=== PATIENT | male | born 1990 | race Hispanic/Latino ===

== ENCOUNTER → 2021-01-16 | Outpatient (CLI) | payer MEDICARE ==
[~2021-01-16] MED LIST: DIATRIZOATE MEGL/DIATRIZOA SOD 30 ML BTL PO ONE; IOPAMIDOL 370 MG/ML 200 ML INFUS..BTL INJ ONE; SODIUM CHLORIDE 0.9% 50ML 50 ML ONE
== END ==
LOC: CT 08:00
PROVIDERS: ATTEND Emergency Medicine
DX: K65.1 Peritoneal abscess (principal); K63.1 Perforation of intestine (nontraumatic); K56.609 Unspecified intestinal obstruction, unspecified as to partial versus complete obstruction; F84.0 Autistic disorder
CPT/HCPCS: 74177; Q9967